=== PATIENT | female | born 1995 | race Caucasian/White ===

== ENCOUNTER 2022-04-16 23:03 | Emergency (ER) | payer SELFPAY ==
[~2022-04-16] VITALS: Ht 162.6 cm; Wt 61.2 kg
[2022-04-16 23:15] VITALS: BP 144/70
--- NOTE | 2022-04-16 23:20 | NUR ---
Patient discharged to home in stable condition. Written and verbal after care instructions given. Patient verbalizes understanding of instruction.
--- NOTE | 2022-04-16 23:23 | NUR ---
Patient discharged to home in stable condition. Written and verbal after care instructions given. Patient verbalizes understanding of instruction.
== END 2022-04-16 23:23 | disposition home or self-care (01) ==
LOC: ER 23:04
DX: Z00.00 Encounter for general adult medical examination without abnormal findings (principal); Z60.2 Problems related to living alone